=== PATIENT | female | born 1975 | race Caucasian/White ===

== ENCOUNTER 2017-11-13 15:03 | Emergency (ER) | payer BC, OTHER ==
[2017-11-13 15:44] VITALS: TEMP 98; O2SAT 100
--- NOTE | 2017-11-13 16:05 | ED.PDOC ---
History of Present Illness - General Chief Complaint: Head Injury Stated Complaint: headache Time Seen by Provider: 11/13/17 16:02 Source: patient Exam Limitations: no limitations - History of Present Illness Initial Comments: patient comes in today for severe headache. Patient states she is not quite sure what happened on Thursday night she believes she fell. Patient states she basically her members getting up in the middle the night but doesn't remember how she got back to bed. In the morning she had blood on the back of her T- shirt and her lip was busted. She felt sore especially on her right elbow and left hip and noted that in her kitchen a Dr. Pepper had been spilled over the floor and things were out of place that looks like she may have fallen. At that time she still had a severe headache in the posterior occipital area with occasional double vision seen horizontally when she tries to read words on a screen such as watching TV. She does have photophobia and some nausea but no emesis. She has noted that at work she is unable to find words in her vocabulary that normally come easily. She is oriented and alert but states she is not quite herself either. She has no other past medical history and denies taking any medication with the exception of [id number] Motrin yesterday for headache that only minimally helped. Occurred: other - night Severity: severe Head Injury Location: occipital Method of Injury: unknown Loss of Consciousness: unsure Associated Symptoms: headaches, loss of appetite, nausea/vomiting, other - vision change Allergies/Adverse Reactions: Allergies Morphine Allergy (Verified 11/13/17 15:17) Verapamil [From [facility]] Allergy (Verified 11/13/17 15:17) iv contrast Allergy (Uncoded 11/13/17 15:25) Home Medications: Ambulatory Orders Tramadol HCl [Ultram] 50 mg PO Q4HR PRN 5 Days #20 tab 11/13/17 Review of Systems - Review of Systems Constitutional: States: malaise, weakness. Denies: chills, fever EENTM: States: double vision - with reading words on screen only. Denies: ear pain, nose pain, throat pain Respiratory: States: no symptoms reported. Denies: short of breath, stridor, wheezing Cardiology: States: no symptoms reported. Denies: chest pain, palpitations Gastrointestinal/Abdominal: Denies: abdominal pain, constipation, diarrhea, nausea, vomiting Genitourinary: States: no symptoms reported Musculoskeletal: States: see HPI Neurological: States: see HPI Past Medical History (General) - Patient Medical History Hx Asthma: Yes Hx Diabetes: No - Social History Hx Tobacco Use: No - Female History Patient is a Female of Child Bearing Age (10 -59 yrs old): Yes Patient : No Family Medical History - Family History Mother Family History: Unknown Physical Exam - Physical Exam General Appearance: Alert, Comfortable Head Injury: no evidence of injury, tenderness - no bruising or ecchymosis but tenderness to the L occipital area of the scalp, no lacerations no Curran's sign Eye Exam: bilateral normal ENT Exam: hearing grossly normal, no evidence of ENT injury, no dental injury Neck Exam: non-tender, full range of motion, normal alignment, normal inspection Cardiovascular/Respiratory: regular rate, rhythm, no M/R/G, normal peripheral pulses, no JVD, normal breath sounds, no respiratory distress Gastrointestinal/Abdominal: normal bowel sounds, non tender, soft Back Exam: normal inspection, no CVA tenderness Extremity: normal range of motion, non-tender 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 I believe she did have a pretty significant concussion on the date in question. Since then she has not allowed her brain to rest but we've reassured her most the time it will get better with time although it may take weeks. We'll have her off of work for the next 4-5 days of asked her to follow up in 4-5 days with her PCP. We'll give her some information about this and some pain control with Ultram and Toradol here. Patient was instructed that Ultram is distantly related to morphine and caution should be used. 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 Fall 4 days ago. Head and neck pain. COMPARISON: None available TECHNIQUE: Multiple axial images of the head without contrast. Multiplanar reformatted images. This exam was performed according to our departmental dose-optimization program, which includes automated exposure control, adjustment of the mA and/or kV according to patient size and/or use of iterative reconstruction technique. FINDINGS: There is no CT evidence of intracranial hemorrhage, mass effect, or large territory infarction. The brain parenchyma and ventricles are normal. 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 Head and neck pain. COMPARISON: None Available. TECHNIQUE: Multiple axial images of the cervical spine without contrast. Multiplanar reformatted images. This exam was performed according to our departmental dose-optimization program, which includes automated exposure control, adjustment of the mA and/or kV according to patient size and/or use of iterative reconstruction technique. FINDINGS: Straightening of the normal cervical lordosis, which may be seen with positioning or muscle spasm. There is no acute fracture or destructive osseous lesion. Intervertebral disc heights are maintained. No CT evidence of significant posterior disc bulge, spinal canal, or neural foraminal stenosis. Borderline enlarged left supraclavicular lymph node measuring 8 mm in short axis. The visualized lung apices are clear. IMPRESSION: 1. No CT evidence of an acute osseous abnormality in the cervical spine Departure - Departure Clinical Impression: Post-concussion headache Disposition: Discharge to Home or Self Care Condition: Fair Departure Forms: ED Discharge - Pt. Copy, Patient Portal Self Enrollment Instructions: DI for Concussion, DI for Closed Head Injury Diet: regular diet Referrals: VIVIANA DALAL [Primary Care Provider] - 1-2 Weeks Home Medications: Ambulatory Orders Tramadol HCl [Ultram] 50 mg PO Q4HR PRN 5 Days #20 tab 11/13/17 Additional Instructions: okay to use [id number] NSAIDs as well for headache. Patient is to rest and not do any strenuous physical or mental activity. Patient should follow-up in 4-5 days with PCP to reevaluate and should not go back to work until reevaluation occurs. Return to emergency room for increased confusion, worsening headache, or worsening vision change.
--- NOTE | 2017-11-13 16:08 | CT ---
EXAM DESCRIPTION: Head CLINICAL HISTORY: head injury. Fall 4 days ago. Head and neck pain. COMPARISON: None available TECHNIQUE: Multiple axial images of the head without contrast. Multiplanar reformatted images. This exam was performed according to our departmental dose-optimization program, which includes automated exposure control, adjustment of the mA and/or kV according to patient size and/or use of iterative reconstruction technique. FINDINGS: There is no CT evidence of intracranial hemorrhage, mass effect, or large territory infarction. The brain parenchyma and ventricles are normal. There are no abnormal extra-axial fluid collections. Vascular structures are unremarkable. There is no acute calvarial defect. Small left occipital scalp laceration. Mild mucosal thickening in the maxillary sinuses. The mastoid air cells are clear. IMPRESSION: No CT evidence of an acute intracranial abnormality. Electronically signed by: Santo Edwards MD 11/13/2017 4:07 PM CDT
--- NOTE | 2017-11-13 16:12 | CT ---
EXAM DESCRIPTION: Cervical Spine CLINICAL HISTORY: Fall 4 days ago. Head and neck pain. COMPARISON: None Available. TECHNIQUE: Multiple axial images of the cervical spine without contrast. Multiplanar reformatted images. This exam was performed according to our departmental dose-optimization program, which includes automated exposure control, adjustment of the mA and/or kV according to patient size and/or use of iterative reconstruction technique. FINDINGS: Straightening of the normal cervical lordosis, which may be seen with positioning or muscle spasm. There is no acute fracture or destructive osseous lesion. Intervertebral disc heights are maintained. No CT evidence of significant posterior disc bulge, spinal canal, or neural foraminal stenosis. Borderline enlarged left supraclavicular lymph node measuring 8 mm in short axis. The visualized lung apices are clear. IMPRESSION: 1. No CT evidence of an acute osseous abnormality in the cervical spine. 2. Borderline enlarged left supraclavicular lymph node. Electronically signed by: Santo Edwards MD 11/13/2017 4:10 PM CDT
[2017-11-13] MEDS ORDERED: KETOROLAC TROMETHAMINE INJ 60 MG/2 ML VIAL IM ONE (16:14)
[2017-11-13 16:19] VITALS: BP 142/90
== END 2017-11-13 16:41 | disposition home or self-care (01) ==
LOC: ER 15:03
DX: G44.309 Post-traumatic headache, unspecified, not intractable (principal); F07.81 Postconcussional syndrome; J45.909 Unspecified asthma, uncomplicated; Z88.5 Allergy status to narcotic agent; Z91.041 Radiographic dye allergy status
CPT/HCPCS: 70450; 72125; J1885